=== PATIENT | female | born 1995 | race Caucasian/White ===

== ENCOUNTER → 2017-01-22 | Outpatient (CLI) | payer OTHER ==
--- NOTE | 2017-01-22 16:36 | DI ---
US BRST U/L OR B/L,01/22/2017 10:44 AM: Clinical History: Painful breasts. Previous Exam: None at this facility. Findings: Physical examination revealed extremely tender breasts bilaterally with some diffusely nodular parenc hyma. Sonographic evaluation reveals normal fibroglandular elements. Impression: No sonographic evidence of malignancy. BIRADS: 2: Benign findings Recommendations: Annual screening beginning at age 40. Note: Breast examination has been discussed and encouraged, and the patient informed to return if the re is any new palpable abnormality in the interval between screening. Overall imaging assessment: Benign findings.
== END ==
LOC: MAMMO 10:35
PROVIDERS: ATTEND Physician Assistant Medical
DX: N60.11 Diffuse cystic mastopathy of right breast (principal); N60.12 Diffuse cystic mastopathy of left breast
CPT/HCPCS: 76641